=== PATIENT | female | born 1965 | race Caucasian/White ===

== ENCOUNTER 2017-05-27 06:05 | Day surgery (SDC) | payer OTHER ==
[~2017-05-27] VITALS: Ht 157.5 cm; Wt 81.6 kg
[2017-05-27] MEDS ORDERED: IBUP-1842 PO (06:54)
[2017-05-27] MEDS ORDERED: PROPOFOL 200 MG/20 ML VIAL IV ONE (07:20)
[2017-05-27] MEDS ORDERED: MIDAZOLAM 2 MG/2 ML VIAL ONE (07:40)
[2017-05-27] MEDS ORDERED: fentaNYL 0.05 MG/ML VIAL ONE (07:40)
[2017-05-27] MEDS ORDERED: IBUPROFEN 800 MG TAB PO PRN (07:55)
[2017-05-27] MEDS ORDERED: ACETAMINOPHEN/CODEINE 300/30MG 1 TAB PO PRN (07:55)
[2017-05-27] MEDS ORDERED: MORPHINE SULFATE 4 MG/ML SYR IM/IVP PRN (07:55)
[2017-05-27] MEDS ORDERED: MORPHINE SULFATE 4 MG/ML SYR IVP PRN ×2 (08:00)
[2017-05-27] MEDS ORDERED: MORPHINE SULFATE 2 MG/ML SYR IVP PRN (08:00)
[2017-05-27] MEDS ORDERED: MORPHINE SULFATE 4 MG/ML SYR ONE (08:24)
[2017-05-27] MEDS ORDERED: MIDAZOLAM 2 MG/2 ML VIAL IV SCH (08:25)
== END 2017-05-27 09:23 | disposition home or self-care (01) ==
LOC: MDS 06:05 → MMU 06:06 → MDS 09:23
PROVIDERS: ATTEND Obstetrics & Gynecology
DX: N92.1 Excessive and frequent menstruation with irregular cycle (principal); E66.01 Morbid (severe) obesity due to excess calories; Z91.09 Other allergy status, other than to drugs and biological substances; Z79.899 Other long term (current) drug therapy; Z98.890 Other specified postprocedural states
CPT/HCPCS: 36415; 58120; 84702; 88305; J2250; J2270; J2704; J3010; J7120

== ENCOUNTER 2021-05-17 06:31 | Day surgery (SDC) | payer OTHER, SELFPAY ==
[~2021-05-17] VITALS: Ht 160 cm; Wt 78.5 kg
[~2021-05-17 06:31] MED LIST: IBUP-1842 PO
[2021-05-17] MEDS ORDERED: fentaNYL citrate 0.05 MG/ML VIAL ONE (08:16)
[2021-05-17] MEDS ORDERED: LIDOCAINE 2% 100 MG/5 ML UJET TP ONE (08:17)
[2021-05-17] MEDS ORDERED: MIDAZOLAM 5 MG/5 ML VIAL ONE (08:19)
[2021-05-17] MEDS ORDERED: fentaNYL citrate 0.05 MG/ML VIAL IVP ONE (14:15)
== END 2021-05-17 09:37 | disposition home or self-care (01) ==
LOC: MMU 06:31 → MDS 06:31
PROVIDERS: ATTEND Internal Medicine Gastroenterology
DX: Z12.11 Encounter for screening for malignant neoplasm of colon (principal); K57.30 Diverticulosis of large intestine without perforation or abscess without bleeding; K64.9 Unspecified hemorrhoids; Z79.899 Other long term (current) drug therapy; Z20.822 Contact with and (suspected) exposure to COVID-19
CPT/HCPCS: 45378; 87426; J3010; J2250